=== PATIENT | female | born 1970 | race Hispanic/Latino ===

== ENCOUNTER 2016-08-16 11:48 | Emergency (ER) | payer MEDICAID, OTHER ==
[2016-08-16 12:07] VITALS: BMI 30.8
[2016-08-16 12:27] VITALS: RESP 16
--- NOTE | 2016-08-16 12:29 | C.PDOC ---
History Of Present Illness 46 year old patient presents to the ED complaining of left sided anterior chest wall pain. Patient state the pain is non-exertional and there are no exacerbating factors. The pain has been constant since last night. She reports her father had an [place] and at the age of 43. She denies any drug use, fever, chills, palpitations, shortness of breath, nausea, vomiting, numbness, weakness, or headache. Time Seen by Provider: 08/16/16 12:28 Chief Complaint (Nursing): Chest Pain History Per: Patient History/Exam Limitations: no limitations Onset/Duration Of Symptoms: Hrs (last night) Current Symptoms Are (Timing): Still Present Context: Other Severity: Mild Pain Scale Rating Of: 3 Quality: "Pain" Exacerbating Factors: None Alleviating Factors: None Recent travel outside of the [place]: No Past Medical History Reviewed: Historical Data, Nursing Documentation, Vital Signs Vital Signs: Last Vital Signs Temp 98.2 F 08/16/16 14:17 Pulse 61 08/16/16 14:17 Resp 16 08/16/16 14:17 BP 106/64 08/16/16 14:17 Pulse Ox 100 08/16/16 14:17 - Medical History PMH: Anxiety, Migraine, Post Traumatic Stress Disorder Family History: States: Unknown Family Hx - Social History Hx Alcohol Use: No Hx Substance Use: No - Immunization History Hx Tetanus Toxoid Vaccination: No Hx Influenza Vaccination: No Hx Pneumococcal Vaccination: No Review Of Systems Except As Marked, All Systems Reviewed And Found Negative. Constitutional: Negative for: Fever, Chills Cardiovascular: Positive for: Chest Pain (left side anterior chest wall). Negative for: Palpitations Respiratory: Negative for: Shortness of Breath Gastrointestinal: Negative for: Nausea, Vomiting Neurological: Negative for: Weakness, Numbness, Headache Physical Exam - Physical Exam Appears: Non-toxic, No Acute Distress Skin: Warm, Dry Head: Atraumatic, Normacephalic Oral Mucosa: Moist Neck: Normal ROM, Supple Chest: Symmetrical, Tenderness (reproducible on palpation to the left chest wall ) Cardiovascular: Rhythm Regular Respiratory: Normal Breath Sounds, No Rales, No Rhonchi, No Wheezing Gastrointestinal/Abdominal: Soft, No Tenderness Back: Normal Inspection, No CVA Tenderness Extremity: Normal ROM Neurological/Psych: Oriented x3, Normal Speech, Normal Cognition, Normal Motor, Normal Sensation Gait: Steady ED Course And Treatment - Laboratory Results Result Diagrams: 08/16/16 13:11 08/16/16 13:11 O2 Sat by Pulse Oximetry: 98 (room air) Pulse Ox Interpretation: Normal Medical Decision Making Medical Decision Making: Plan: * EKG * Labs * Chest x-ray * Toradol * Aspirin Progress: EKG: interpreted by me Normal Sinus Rhythm 72 bpm No acute ischemia Chest x-ray (read by radiologist: Missy Moon MD) HISTORY: cp COMPARISON: None available. TECHNIQUE: Chest, one view. FINDINGS: Examination limited by habitus. LUNGS: Minimal bibasilar atelectasis. Please note that chest x-ray has limited sensitivity for the detection of pulmonary masses. PLEURA: No significant pleural effusion identified. No definite pneumothorax . CARDIOVASCULAR: The cardiomediastinal silhouette appears within normal limits of size. OSSEOUS STRUCTURES: No acute osseous abnormality identified. VISUALIZED UPPER ABDOMEN: Unremarkable. OTHER FINDINGS: None. IMPRESSION: Minimal bibasilar atelectasis. The patient declines to have further medical evaluation and treatment and wishes to leave the Emergency Department. This action is against my medical advice to the patient, and with informed refusal. The patient was told that evaluation and treatment are necessary and a full explanation of the rationale was given. The risks of leaving were explained to the patient and include, but are not limited to, worsening of known or currently unknown conditions, permanent disability and from undiagnosed or untreated conditions The patient has the capacity to make this informed decision and understands the clinical situation and my explanation of the risks of leaving. The patient voluntarily accepts these risks, and a signed AMA form documenting our conversation was obtained. The patient was given the opportunity to ask questions and reconsider. The patient was encouraged to return to the Emergency Department at any time for further care. Disposition - Disposition Disposition: AGAINST MEDICAL ADVICE Disposition Time: 13:57 Condition: STABLE Additional Instructions: Please follow up with your doctor. Return to the ER for any worsening symptoms or for any other concerns. Instructions: Chest Pain (ED) Forms: General Discharge Instructions, Work Excuse - Clinical Impression Clinical Impression: Chest pain
--- NOTE | 2016-08-16 12:51 | RAD ---
HISTORY: cp COMPARISON: None available. TECHNIQUE: Chest, one view. FINDINGS: Examination limited by habitus. LUNGS: Minimal bibasilar atelectasis. Please note that chest x-ray has limited sensitivity for the detection of pulmonary masses. PLEURA: No significant pleural effusion identified. No definite pneumothorax . CARDIOVASCULAR: The cardiomediastinal silhouette appears within normal limits of size. OSSEOUS STRUCTURES: No acute osseous abnormality identified. VISUALIZED UPPER ABDOMEN: Unremarkable. OTHER FINDINGS: None. IMPRESSION: Minimal bibasilar atelectasis.
[2016-08-16 13:17] LABS: BASO % 0.8 % (0.0-2.0); EOS # 0.2 K/uL (0.0-0.7); EOS % 4.1 % (0.0-4.0); HEMATOCRIT 40.4 % (34.0-47.0); LYMPH % 33.9 % (20.0-40.0); MEAN CELL VOLUME 89.9 fL (81.0-99.0); MEAN CORPUSCULAR HEMOGLOBIN 30.6 pg (27.0-31.0); MEAN PLATELET VOLUME 8.9 fL (7.2-11.7); MONO # 0.3 K/uL (0.0-0.8); MONO % 5.9 % (0.0-10.0); RED CELL DISTRIBUTION WIDTH 12.8 % (11.5-14.5); WHITE BLOOD COUNT 5.9 K/uL (4.8-10.8)
[2016-08-16 13:27] LABS: CHLORIDE 101 mmol/L (98-107); POTASSIUM 3.4 mmol/L (3.6-5.2); SODIUM 136 mmol/L (132-148)
[2016-08-16 13:29] LABS: GFR AFRICAN-AMERICAN > 60
[2016-08-16 13:30] LABS: ALB/GLOB RATIO 1.2 (1.0-2.1); ALKALINE PHOSPHATASE 110 U/L (38-126); ALT/SGPT 27 U/L (9-52); AST/SGOT 19 U/L (14-36); BILIRUBIN,TOTAL 0.5 mg/dL (0.2-1.3); BLOOD UREA NITROGEN 9 mg/dL (7-17); CARBON DIOXIDE 26 mmol/L (22-30); GLUCOSE,RANDOM 96 mg/dL (65-105); TOTAL PROTEIN 6.4 g/dL (6.3-8.3)
[2016-08-16 13:31] LABS: CALCIUM 8.5 mg/dl (8.6-10.4)
[2016-08-16 14:18] VITALS: BP 106/64; PULSE 61; TEMP 98.2
[2016-08-16 16:24] VITALS: O2SAT 98
--- NOTE | 2016-08-21 21:41 | CARD ---
APPROVED REPORT EKG Measurement Heart [id number] <Conclusion> Normal sinus rhythm Normal ECG
== END 2016-08-16 14:18 | disposition left against medical advice (07) ==
LOC: C.ER 11:48
DX: R07.9 Chest pain, unspecified (principal)
CPT/HCPCS: 71010; 80053; 84484; 85025; 96374; 99285; J1885

== ENCOUNTER 2017-03-30 16:47 | Emergency (ER) | payer MEDICAID ==
[2017-03-30 16:48] VITALS: BMI 30.8
[2017-03-30 17:04] VITALS: BP 116/75; PULSE 104; RESP 18; TEMP 99; O2SAT 98
[2017-03-30 17:30] LABS: HCG,QUALITATIVE URINE NEGATIVE (NEGATIVE)
[2017-03-30 17:31] LABS: SQUAMOUS EPITHIAL 5 /hpf (0-5); URINE BACTERIA FEW (<OCC); URINE BILIRUBIN NEGATIVE (NEGATIVE); URINE BLOOD 1+ (NEGATIVE); URINE CLARITY Hazy (Clear); URINE COLOR Yellow (YELLOW); URINE GLUCOSE (UA) NORMAL (Normal); URINE LEUKOCYTE ESTERASE 3+ Leu/uL (Negative); URINE NITRATE NEGATIVE (NEGATIVE); URINE PROTEIN NEGATIVE (NEGATIVE); URINE UROBILINOGEN NORMAL mg/dL (0.2-1.0)
== END 2017-03-30 19:24 | disposition left against medical advice (07) ==
LOC: C.ER 16:47
DX: Z02.89 Encounter for other administrative examinations (principal); R52 Pain, unspecified
CPT/HCPCS: 81001; 84703; LWBS0

== ENCOUNTER 2017-09-03 17:37 | Emergency (ER) | payer MEDICAID ==
[2017-09-03 17:37] VITALS: BMI 30.8
[2017-09-03 17:43] VITALS: BP 108/75; O2SAT 100
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
[2017-09-03 20:11] VITALS: PULSE 73; RESP 18; TEMP 98
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
== END 2017-09-03 19:17 | disposition home or self-care (01) ==
LOC: C.ER 17:37
DX: S02.2XXA Fracture of nasal bones, initial encounter for closed fracture (principal); Y04.0XXA Assault by unarmed brawl or fight, initial encounter